=== PATIENT | female | born 1995 | race Caucasian/White ===

== ENCOUNTER 2019-04-11 18:51 | Observation (INO) ==
[2019-04-11 19:27] LABS: Basophils # 0.1 K/mm3 (0-0.2); Basophils % 0.5 % (0.1-2.0); Eosinophils # 0.1 K/mm3 (0.0-0.4); Eosinophils % 0.9 % (0.1-12.0); Hematocrit 41.2 % (37.0-47.0); Hemoglobin 12.9 g/dL (12.2-16.2); Lymphocytes # 2.9 K/mm3 (0.7-4.5); Lymphocytes % 30.9 % (10-50); Mean Corpuscular HGB Conc 31.4 g/dL (31.8-35.4); Mean Platelet Volume 8.1 fl (7.4-10.4); Monocytes # 0.8 K/mm3 (0.1-1.0); Monocytes % 8.6 % (1.7-9.3); Neutrophils # 5.6 K/mm3 (1.8-7.8); Neutrophils % 59.1 % (37.0-80.0); Platelet Count 249 K/mm3 (142-424); Red Blood Count 4.58 M/mm3 (4.20-5.40); Red Cell Distribution Width 13.1 % (11.5-17.5); White Blood Count 9.5 K/mm3 (4.8-10.8)
[2019-04-11 19:27] LABS: Microscopic, Urine URINE MICROSCOPIC (MICROSCOPIC)
[2019-04-11 19:39] LABS: Alanine Aminotransferase 22 U/L (12-78); Albumin Level 4.1 gm/dL (3.4-5.0); Albumin/Globulin Ratio 1.2 (1.1-1.8); Alkaline Phosphatase 67 U/L (46-116); Anion Gap 15.7 mEq/L (5-15); Aspartate Amino Transferase 17 U/L (15-37); Bilirubin,Total 0.2 mg/dL (0.2-1.0); Blood Urea Nitrogen 11 mg/dL (7-18); Carbon Dioxide 23 mmol/L (21.0-32.0); Chloride 105 mmol/L (98-107); Globulin 3.5 gm/dl (1.3-3.2); Glucose 92 mg/dL (74-106); Sodium 140 mmol/L (136-145); Total Protein,Serum 7.6 gm/dL (6.4-8.2)
[2019-04-11 19:43] LABS: Appearance,Urine SL CLOUDY (Clear); Bilirubin,Urine Negative (Negative); Blood, Urine 3+ (Negative); Color,Urine YELLOW (Yellow); Glucose,Urine (UA) Negative (Negative); Ketones,Urine Negative (Negative); Leukocyte Esterase,Urine Negative (Negative); PH,Urine 7.5 (5.0-8.5); Protein,Urine 1+ (Negative); Specific Gravity, Urine 1.015 (1.005-1.030); Urobilinogen,Urine 0.2 EU/dl (0.2)
[2019-04-11 19:44] LABS: RBC,Urine 50-100 #/hpf (0-3)
[2019-04-11 19:48] LABS: Amphetamine/Metha Screen,Urine Negative ng/mL (<1000); Barbiturates Screen,Urine Negative ng/mL (<200); Benzodiazepines Screen,Urine Negative ng/mL (<200); Cannabinoid Screen,Urine Negative ng/mL (<50); Cocaine Screen,Urine Negative ng/mL (<300); Methadone Screen,Urine Negative ng/mL (<300); Opiate Screen,Urine Negative ng/mL (<300); Phencyclidine Screen,Urine Negative ng/mL (<25)
--- NOTE | 2019-04-11 19:56 | Emergency Department Note ---
ED Disposition Clinical Impression: Orthostasis, Vaginal bleeding Disposition: Still a Patient Condition on Discharge: Fair Instructions: DI for Syncope in Adults (Fainting), DI for Syncope in Children (Fainting) Referrals: Provider,MD [place] [Primary Care Provider] - Agnes Mcleod MD [Staff Physician] - - Critical Care Critical Care Time: No Attestation: On , the high probability of a clinically significant, sudden or life threatening deterioration of the following system(s) required my full and direct attention, intervention and personal management. The time I documented below is in addition to time spent performing reported procedures but includes the following listed in this critical care notation. Medical Decision Making - Jomar Inquiry Pt receiving controlled substance: No Jomar was queried for this patient: No Vital Signs: 04/11/19 18:53 04/11/19 19:02 04/11/19 19:14 Temperature 98.9 F 98.9 F Temperature Source Oral Oral Pulse Rate [Orthostatic Lying Right Radial] 68 Pulse Rate [Orthostatic Sitting Right Radial] 66 Pulse Rate [Orthostatic Standing Right Brachial] 74 Pulse Rate [Right] 103 H 103 H Respiratory Rate 18 18 Blood Pressure [Orthostatic Lying Right Arm] 91/56 L Blood Pressure [Orthostatic Sitting Right Arm] 93/41 L Blood Pressure [Orthostatic Standing Right Arm] 72/50 L Blood Pressure [Right Arm] 150/99 H 150/99 H Blood Pressure Mean [Right Arm] 116 116 Blood Pressure Source [Right Arm] Automatic Cuff Automatic Cuff Blood Pressure Position [Right Arm] Supine Supine 02 Sat by Pulse Oximetry 99 99 Oxygen Delivery Method Room Air Room Air 04/11/19 19:40 Temperature Temperature Source Pulse Rate [Orthostatic Lying Right Radial] Pulse Rate [Orthostatic Sitting Right Radial] Pulse Rate [Orthostatic Standing Right Brachial] Pulse Rate [Right] 84 Respiratory Rate 18 Blood Pressure [Orthostatic Lying Right Arm] Blood Pressure [Orthostatic Sitting Right Arm] Blood Pressure [Orthostatic Standing Right Arm] Blood Pressure [Right Arm] 118/70 Blood Pressure Mean [Right Arm] 86 Blood Pressure Source [Right Arm] Automatic Cuff Blood Pressure Position [Right Arm] Supine 02 Sat by Pulse Oximetry 99 Oxygen Delivery Method Room Air - Lab Data Lab Results 04/11/19 19:03: WBC 9.5, RBC 4.58, Hgb 12.9, Hct 41.2, MCV 90.0, MCH 28.2, MCHC 31.4 L, RDW 13.1, Plt Count 249, MPV 8.1, Neut % (Auto) 59.1, Lymph % (Auto) 30.9, [place] % (Auto) 8.6, Eos % (Auto) 0.9, Baso % (Auto) 0.5, Neut # (Auto) 5.6, Lymph # (Auto) 2.9, [place] # (Auto) 0.8, Eos # (Auto) 0.1, Baso # (Auto) 0.1 04/11/19 19:03: Sodium 140, Potassium 3.7, Chloride 105, Carbon Dioxide 23, Anion Gap 15.7 H, BUN 11, Creatinine 0.81, Estimated Creat Clear 85, Estimated GFR 86, Est GFR ( Amer) 104, Glucose 92, Calcium 9.0, Total Bilirubin 0.2, AST 17, ALT 22, Alkaline Phosphatase 67, Troponin I < 0.02, Total Protein 7.6, Albumin 4.1, Globulin 3.5 H, Albumin/Globulin Ratio 1.2 04/11/19 19:10: POC Glucose 108 04/11/19 19:23: Urine Color Yellow, Urine Appearance Sl cloudy, Urine pH 7.5, Ur Specific [place] 1.015, Urine Protein 1+, Urine Glucose (UA) Negative, Urine Ketones Negative, Urine Blood 3+, Urine Nitrate Negative, Urine Bilirubin Negative, Urine Urobilinogen 0.2, Ur Leukocyte Esterase Negative, Urine RBC 50- 100, Ur Squamous Epith Cells 5-10, Ur Renal Epithelial Cell 3-5 04/11/19 19:23: Urine HCG, Qual Negative 04/11/19 19:23: Urine Opiates Screen Negative, Urine Methadone Screen Negative, Ur Barbituates Screen Negative, Ur Phencyclidine Scrn Negative, Ur Amphetamines Screen Negative, U Benzodiazepines Scrn Negative, Urine Cocaine Screen Negative, U Marijuana (THC) Screen Negative Result diagrams: 04/11/19 19:03 04/11/19 19:03 Orders (Tests/Meds): ED MEDICATIONS Generic Name Dose Route Start Last Admin Trade Name Freq PRN Reason Stop Dose Admin Sodium Chloride 1,000 mls @ 999 mls/hr 04/11/19 19:45 04/11/19 19:37 Sod Chlor 0.9% 1000ml Bag IV 04/11/19 20:45 999 mls/hr .Q1H1M LANCE Administration Sodium Chloride 1,000 mls @ 999 mls/hr 04/11/19 20:15 04/11/19 20:11 Sod Chlor 0.9% 1000ml Bag IV 04/11/19 21:15 999 mls/hr .Q1H1M LANCE Administration ORDERS Category Date Time Status Type and Screen Stat BBK 04/11/19 19:[address] cervical spine wo con Stat Cat Scan 04/11/19 19:[address] head/brain wo con Stat Cat Scan 04/11/19 19:13 Taken XR chest AP Stat Exams 04/11/19 19:13 Ordered XR pelvis 1-2V Stat Exams 04/11/19 19:13 Ordered Medical Decision Narrative: I spoke with Dr. Mcleod DRIVER SUPERVISOR on-call who agreed to admit the patient for IV fluid rehydration and repeat CBC in the morning. Dizzy HPI - General Chief Complaint: Syncope Stated Complaint: Passed out hit head Time Seen by Provider: 04/11/19 19:00 Mode of Arrival: Ambulatory Limitations: No Limitations Description of Symptoms (Recalled from ER Triage Doc. by RN): Pt states she fell walking to chair after going to the bathroom, c/o H/A - History of Present Illness HPI Narrative: 23 years old white female with no significant past medical history. The patient is 0 para 0 A0, her period is 11 days late and she has been nauseous during that period of time with no decreased p.o. intake and normal urinations.. Started yesterday with changing 11 pads. Prior to arrival to the ED she walked out of the bathroom felt dizzy and fell, denies any focal pain. MD complaint: dizziness, lightheadedness Onset (ago): minute(s) Time: 18:00 Timing: sudden onset Description: lightheadedness History of similar episodes: No History of trauma: No Severity: severe Relieving factors: remaining still Exacerbating factors: movement Associated symptoms: denies other symptoms - Related Data Home Medications Medication Instructions Recorded Confirmed No Known Home Medications 03/30/19 04/11/19 Allergies Allergy/AdvReac Type Severity Reaction Status Date / Time corn Allergy Verified 04/11/19 20:20 gluten Allergy Verified 04/11/19 20:20 nut - unspecified Allergy Verified 04/11/19 20:20 tomato Allergy Verified 04/11/19 20:20 [facility] History - Hepatitis A Screen Drug use history?: No High risk sexual behaviors?: No History of sexually transmitted infection?: No Currently employed?: No Childcare worker?: No Do you have indoor plumbing?: Yes Do you have electricity?: Yes Attestation statement:: This patient has been screened for Hepatitis A risk factors. I have reviewed the patient's past medical history: Yes Medical History: Denies:: Diabetes Mellitus Type 1, Diabetes Mellitus Type 2 Laterality Cases: Bilateral: Tonsillectomy Other Surgeries: Yes: Hernia Repair Amputation: No Fractures: No - Social History Smoking Status: Never smoker Alcohol Intake: never Occupational Status: unemployed Family Hx:: No significant family history ROS Obtained: Yes All systems reviewed & no additional complaints Physical Exam - General General appearance: alert, in no apparent distress - Head Head exam: atraumatic, normocephalic, normal inspection - Eye Eye exam: Present: normal appearance, PERRL, EOMI. Absent: scleral icterus, nystagmus - ENT ENT exam: Present: normal exam, normal oropharynx, mucous membranes moist, TM's normal bilaterally, normal external ear exam - Neck Neck exam: Present: normal inspection, full ROM, trachea midline. Absent: tenderness, meningismus, lymphadenopathy - Chest Chest inspection: Present: normal inspection, symmetric chest wall rise. Absent: tenderness - Respiratory Respiratory exam: Present: normal lung sounds bilaterally. Absent: respiratory distress, wheezes - Cardiovascular Cardiovascular exam: Present: regular rate, normal rhythm. Absent: JVD - Abdominal Exam Abdominal exam: Present: soft, normal bowel sounds. Absent: distention, tenderness, guarding, rebound, rigidity Comment: Vulva and vagina are within normal limits, no adnexal masses or tenderness, uterus within normal size cervix is firm and closed, dark blood on the gloves.. - External exam: Present: normal external exam - Extremities Exam Extremities exam: Present: normal inspection, full ROM, normal capillary refill. Absent: pedal edema, calf tenderness - Back Exam Back exam: Present: normal inspection. Absent: tenderness, CVA tenderness (R), CVA tenderness (L) - Neurological Exam Neurological exam: Present: alert, oriented X3, CN II-XII intact, motor sensory deficit, reflexes normal - Psychiatric Psychiatric exam: Present: normal affect, normal mood - Skin Skin exam: Present: warm, dry, intact, normal color - Lymphatic Lymphatic Findings: no adenopathy
[2019-04-12 07:02] LABS: Basophils % 0.2 % (0.1-2.0); Eosinophils # 0.1 K/mm3 (0.0-0.4); Eosinophils % 1.1 % (0.1-12.0); Hematocrit 34.6 % (37.0-47.0); Lymphocytes # 2.4 K/mm3 (0.7-4.5); Lymphocytes % 28.3 % (10-50); Mean Corpuscular HGB Conc 31.4 g/dL (31.8-35.4); Mean Corpuscular Volume 90.5 fl (81-99); Mean Platelet Volume 8.3 fl (7.4-10.4); Monocytes # 0.6 K/mm3 (0.1-1.0); Monocytes % 7.1 % (1.7-9.3); Neutrophils # 5.3 K/mm3 (1.8-7.8); Neutrophils % 63.3 % (37.0-80.0); Platelet Count 206 K/mm3 (142-424); Red Blood Count 3.82 M/mm3 (4.20-5.40); Red Cell Distribution Width 13.2 % (11.5-17.5); White Blood Count 8.4 K/mm3 (4.8-10.8)
[2019-04-12 07:13] LABS: Anion Gap 11.9 mEq/L (5-15); Calcium 8.3 mg/dL (8.5-10.1)
[2019-04-12 07:38] LABS: Hemoglobin 10.8 g/dL (12.2-16.2)
--- NOTE | 2019-04-12 10:07 | Pharmacy Consult Notes ---
[facility] Pharmacy VTE Monitoring - Patient Demographics Admission date: 04/12/19 Report Date: 04/12/19 Time: 10:07 Allergies/Adverse Reactions: Patient Allergies corn Allergy (Verified 04/11/19 20:20) gluten Allergy (Verified 04/11/19 20:20) nut - unspecified Allergy (Verified 04/11/19 20:20) tomato Allergy (Verified 04/11/19 20:20) Height: 1.68 m Weight: 52.645 kg Patient Problems: Current Active Problems (Updated 04/11/19 @ 20:01 by Jimi Richardson MD) Orthostasis (Acute) Vaginal bleeding (Acute) - VTE Risk Labs: VTE Related Lab Results Hgb 10.8 g/dL (12.2-16.2) L D 04/12/19 06:50 Hct 34.6 % (37.0-47.0) L 04/12/19 06:50 Plt Count 206 K/mm3 (142-424) 04/12/19 06:50 BUN 9 mg/dL (7-18) 04/12/19 06:50 Creatinine 0.57 mg/dL (0.55-1.02) D 04/12/19 06:50 Estimated Creat Clear 125 mL/min (50-200) 04/12/19 06:50 Was VTE Risk Assessment Performed: Yes VTE Risk Level: Very Low Risk - Prophylaxis Types of VTE Prophylaxis: TEDS Knee High (BOBBY HOSE ORDER PLACED)
--- NOTE | 2019-04-12 11:29 | History & Physical Report ---
*Admission Date: 04/12/19 *Chief complaint: heavy vaginal bleeding, syncope *History of present illness: 23 yo presented to the ED after syncopal episode. Menstrual period was late and when it began was excessively heavy. Patient reported using 10 pads during that day, and had syncopal episode upon rising. No previous similar episodes. HCG was negative. She was initially orthostatic upon assessment, but vital signs improved & stablized after administration of IV fluids. She is admitted for observation with repeat labs in the am. [facility] History I have reviewed the patient's past medical history: Yes Medical History: Denies:: Diabetes Mellitus Type 1, Diabetes Mellitus Type 2 *Have you ever received a pneumonia vaccine?: No *Have you received a flu vaccine this season?: No Laterality Cases: Bilateral: Tonsillectomy Other Surgeries: Yes: Hernia Repair Amputation: No Fractures: No - *Social History Educational Level: Completed High School Smoking Status: Never smoker Alcohol Intake: never *Occupational Status:: unemployed Household Members: spouse *Travel in the last 8 weeks: None - Psychiatric History Expresses thoughts of harming self/others: None Suicide Plan Description: No Plan Family Hx:: Thyroid Disorder Review of Systems - Review of Systems CONSTITUTIONAL: no fever; + lightheaded at presentation HEENT: no oral lesions PULMONARY: no shortness of breath or difficulty breathing CV: no racing heart, palpitations or chest pain ABD: no abdominal pain, N/V : + excessive bleeding SKIN: no new rash or skin lesions EXT: no edema NEURO: no mental status changes PSYCH: no current anxiety/depression Meds Home Medications Medication Instructions Recorded Confirmed Type Clindamycin Phosphate 0 gm TOPICAL DIRECTED 04/12/19 04/12/19 History Tretinoin 0 gm TOPICAL DIRECTED 04/12/19 04/12/19 History Allergies Allergy/AdvReac Type Severity Reaction Status Date / Time corn Allergy Verified 04/11/19 20:20 gluten Allergy Verified 04/11/19 20:20 nut - unspecified Allergy Verified 04/11/19 20:20 tomato Allergy Verified 04/11/19 20:20 Exam Vital signs and Labs for Last 24 Hours: Temp Pulse Resp BP Pulse Ox 98.2 F 86 15 120/72 98 04/12/19 08:00 04/12/19 08:00 04/12/19 08:00 04/12/19 08:00 04/12/19 08:00 Laboratory Results - last 24 hr 04/11/19 19:03: WBC 9.5, RBC 4.58, Hgb 12.9, Hct 41.2, MCV 90.0, MCH 28.2, MCHC 31.4 L, RDW 13.1, Plt Count 249, MPV 8.1, Neut % (Auto) 59.1, Lymph % (Auto) 30.9, [place] % (Auto) 8.6, Eos % (Auto) 0.9, Baso % (Auto) 0.5, Neut # (Auto) 5.6, Lymph # (Auto) 2.9, [place] # (Auto) 0.8, Eos # (Auto) 0.1, Baso # (Auto) 0.1 04/11/19 19:03: Sodium 140, Potassium 3.7, Chloride 105, Carbon Dioxide 23, Anion Gap 15.7 H, BUN 11, Creatinine 0.81, Estimated Creat Clear 85, Estimated GFR 86, Est GFR ( Amer) 104, Glucose 92, Calcium 9.0, Total Bilirubin 0.2, AST 17, ALT 22, Alkaline Phosphatase 67, Troponin I < 0.02, Total Protein 7.6, Albumin 4.1, Globulin 3.5 H, Albumin/Globulin Ratio 1.2 04/11/19 19:10: POC Glucose 108 04/11/19 19:23: Urine Color Yellow, Urine Appearance Sl cloudy, Urine pH 7.5, Ur Specific [place] 1.015, Urine Protein 1+, Urine Glucose (UA) Negative, Urine Ketones Negative, Urine Blood 3+, Urine Nitrate Negative, Urine Bilirubin Negative, Urine Urobilinogen 0.2, Ur Leukocyte Esterase Negative, Urine RBC 50- 100, Ur Squamous Epith Cells 5-10, Ur Renal Epithelial Cell 3-5 04/11/19 19:23: Urine HCG, Qual Negative 04/11/19 19:23: Urine Opiates Screen Negative, Urine Methadone Screen Negative, Ur Barbituates Screen Negative, Ur Phencyclidine Scrn Negative, Ur Amphetamines Screen Negative, U Benzodiazepines Scrn Negative, Urine Cocaine Screen Negative, U Marijuana (THC) Screen Negative 04/11/19 21:05: Blood Type A Positive, Antibody Screen Negative 04/12/19 06:50: WBC 8.4, RBC 3.82 L, Hgb 10.8 L D, Hct 34.6 L, MCV 90.5, MCH 28.4, MCHC 31.4 L, RDW 13.2, Plt Count 206, MPV 8.3, Neut % (Auto) 63.3, Lymph % (Auto) 28.3, [place] % (Auto) 7.1, Eos % (Auto) 1.1, Baso % (Auto) 0.2, Neut # (Auto) 5.3, Lymph # (Auto) 2.4, [place] # (Auto) 0.6, Eos # (Auto) 0.1, Baso # (Auto) 0.0 04/12/19 06:50: Sodium 139, Potassium 3.9, Chloride 107, Carbon Dioxide 24, Anion Gap 11.9, BUN 9, Creatinine 0.57 D, Estimated Creat Clear 125, Estimated GFR 129, Est GFR ( Amer) 156 D, Glucose 87, Calcium 8.3 L I & O for Last 24 hours: Intake & Output 04/09/19 04/10/19 04/11/19 04/12/19 11:59 11:59 11:59 11:59 Intake Total 2991 / 2991 Output Total 1850 / 1850 Balance 1141 / 1141 Weight 116 lb 1 oz Narrative: CONSTITUTIONAL: no acute distress HEENT: mucous membranes moist PULMONARY: breathing unlabored without audible wheezes CV: + tachycardia; normal LE peripheral pulses ABD: soft, NT/ND, no guarding : per ED note SKIN: no visible rash or lesions EXT: no edema LEs NEURO: alert/oriented, no altered mental status PSYCH: appropriate mood and demeanor without visible anxiety/depression Assessment and Plan (1) Orthostasis Current visit: Yes Status: Acute Category: Medical Code(s): I95.1 - Orthostatic hypotension (2) Vaginal bleeding Current visit: Yes Status: Acute Category: Medical Code(s): N93.9 - Abnormal uterine and vaginal bleeding, unspecified - Assessment and plan all Dx Assessment and Plan for all problems:: Admission for observation overnight Continue IV hydration Repeat CBC in am No need for acute/hormonal treatment of DUB at this time
--- NOTE | 2019-04-12 11:49 | Discharge Summary ---
General - General Admission date:: 04/11/19 Discharge date: 04/12/19 HPI HPI: 23 yo G0 presented to the ED after syncopal episode. Menstrual period was late and when it began was excessively heavy. Patient reported using 10 pads during that day, and had syncopal episode upon rising. No previous similar episodes, although she reports intermittent heavy menstrual bleeding. HCG was negative. She was initially orthostatic upon assessment, but vital signs improved & stablized after administration of IV fluids. She is admitted for observation with repeat labs in the am. Hgb at admissin was 12.9 and dropped to 10.8 on HD #2 Orthostatic symptoms improved and no additional syncopal episodes The option of prophylactic medical management (OCPs, levonorgestrel IUD) was discussed with the patient, and she was not interested in medical management at this time. She reported that she is not actively trying to conceive, but did not want to prevent at this time. She has an appointment with a new particle board supervisor scheduled for tomorrow and will discuss options for management of HMB further with this provider at that time. She was advised to start po FeSO4 supplementation, and that she may also benefit from NSAID use during menstrual bleeding to decrease total blood loss. Hospital Course Hospital Course: per HPI Objective Vital signs: Temp Pulse Resp BP Pulse Ox 98.2 F 86 15 120/72 98 04/12/19 08:00 04/12/19 08:00 04/12/19 08:00 04/12/19 08:00 04/12/19 08:00 Narrative: CONSTITUTIONAL: no acute distress HEENT: mucous membranes moist PULMONARY: breathing unlabored without audible wheezes CV: no tachycardia or visible JVD; normal LE peripheral pulses ABD: soft, NT/ND, no guarding : deferred SKIN: no visible rash or lesions EXT: no edema LEs NEURO: alert/oriented, no altered mental status PSYCH: appropriate mood and demeanor without anxiety/depression Results Labs on day of discharge: Labs from last 24 hours 04/12/19 04/12/19 04/11/19 06:50 06:50 21:05 WBC 8.4 RBC 3.82 L Hgb 10.8 L D Hct 34.6 L MCV 90.5 MCH 28.4 MCHC 31.4 L RDW 13.2 Plt Count 206 MPV 8.3 Neut % (Auto) 63.3 Lymph % (Auto) 28.3 [place] % (Auto) 7.1 Eos % (Auto) 1.1 Baso % (Auto) 0.2 Neut # (Auto) 5.3 Lymph # (Auto) 2.4 [place] # (Auto) 0.6 Eos # (Auto) 0.1 Baso # (Auto) 0.0 Sodium 139 Potassium 3.9 Chloride 107 Carbon Dioxide 24 Anion Gap 11.9 BUN 9 Creatinine 0.57 D Estimated Creat Clear 125 Estimated GFR 129 Est GFR ( Amer) 156 D Glucose 87 POC Glucose Calcium 8.3 L Total Bilirubin AST ALT Alkaline Phosphatase Troponin I Total Protein Albumin Globulin Albumin/Globulin Ratio Urine Color Urine Appearance Urine pH Ur Specific [place] Urine Protein Urine Glucose (UA) Urine Ketones Urine Blood Urine Nitrate Urine Bilirubin Urine Urobilinogen Ur Leukocyte Esterase Urine RBC Ur Squamous Epith Cells Ur Renal Epithelial Cell Urine HCG, Qual Urine Opiates Screen Urine Methadone Screen Ur Barbituates Screen Ur Phencyclidine Scrn Ur Amphetamines Screen U Benzodiazepines Scrn Urine Cocaine Screen U Marijuana (THC) Screen Blood Type A Positive Antibody Screen Negative 04/11/19 04/11/19 04/11/19 19:23 19:23 19:23 WBC RBC Hgb Hct MCV MCH MCHC RDW Plt Count MPV Neut % (Auto) Lymph % (Auto) [place] % (Auto) Eos % (Auto) Baso % (Auto) Neut # (Auto) Lymph # (Auto) [place] # (Auto) Eos # (Auto) Baso # (Auto) Sodium Potassium Chloride Carbon Dioxide Anion Gap BUN Creatinine Estimated Creat Clear Estimated GFR Est GFR ( Amer) Glucose POC Glucose Calcium Total Bilirubin AST ALT Alkaline Phosphatase Troponin I Total Protein Albumin Globulin Albumin/Globulin Ratio Urine Color Yellow Urine Appearance Sl cloudy Urine pH 7.5 Ur Specific [place] 1.015 Urine Protein 1+ Urine Glucose (UA) Negative Urine Ketones Negative Urine Blood 3+ Urine Nitrate Negative Urine Bilirubin Negative Urine Urobilinogen 0.2 Ur Leukocyte Esterase Negative Urine RBC 50-100 Ur Squamous Epith Cells 5-10 Ur Renal Epithelial Cell 3-5 Urine HCG, Qual Negative Urine Opiates Screen Negative Urine Methadone Screen Negative Ur Barbituates Screen Negative Ur Phencyclidine Scrn Negative Ur Amphetamines Screen Negative U Benzodiazepines Scrn Negative Urine Cocaine Screen Negative U Marijuana (THC) Screen Negative Blood Type Antibody Screen 04/11/19 04/11/19 04/11/19 19:10 19:03 19:03 WBC 9.5 RBC 4.58 Hgb 12.9 Hct 41.2 MCV 90.0 MCH 28.2 MCHC 31.4 L RDW 13.1 Plt Count 249 MPV 8.1 Neut % (Auto) 59.1 Lymph % (Auto) 30.9 [place] % (Auto) 8.6 Eos % (Auto) 0.9 Baso % (Auto) 0.5 Neut # (Auto) 5.6 Lymph # (Auto) 2.9 [place] # (Auto) 0.8 Eos # (Auto) 0.1 Baso # (Auto) 0.1 Sodium 140 Potassium 3.7 Chloride 105 Carbon Dioxide 23 Anion Gap 15.7 H BUN 11 Creatinine 0.81 Estimated Creat Clear 85 Estimated GFR 86 Est GFR ( Amer) 104 Glucose 92 POC Glucose 108 Calcium 9.0 Total Bilirubin 0.2 AST 17 ALT 22 Alkaline Phosphatase 67 Troponin I < 0.02 Total Protein 7.6 Albumin 4.1 Globulin 3.5 H Albumin/Globulin Ratio 1.2 Urine Color Urine Appearance Urine pH Ur Specific [place] Urine Protein Urine Glucose (UA) Urine Ketones Urine Blood Urine Nitrate Urine Bilirubin Urine Urobilinogen Ur Leukocyte Esterase Urine RBC Ur Squamous Epith Cells Ur Renal Epithelial Cell Urine HCG, Qual Urine Opiates Screen Urine Methadone Screen Ur Barbituates Screen Ur Phencyclidine Scrn Ur Amphetamines Screen U Benzodiazepines Scrn Urine Cocaine Screen U Marijuana (THC) Screen Blood Type Antibody Screen DS: Diagnosis - Discharge Diagnosis (1) Orthostasis Status: Acute (2) Vaginal bleeding Status: Acute Discharge Plan - Patient Discharge Instructions ACTIVITY: Ambulate as tolerated DIET: regular diet Patient Instructions: DI for Syncope in Adults (Fainting), DI for Vaginal Bleeding - Follow up Plan Disposition: Home, Self-[facility]itentiary Medications: Home Medications Medication Instructions Recorded Confirmed Type Clindamycin Phosphate 0 gm TOPICAL DIRECTED 04/12/19 04/12/19 History Tretinoin 0 gm TOPICAL DIRECTED 04/12/19 04/12/19 History Prescriptions/Medication Reconciliation: Continued Clindamycin Phosphate 0 gm TOPICAL DIRECTED Tretinoin 0 gm TOPICAL DIRECTED - Additional Information Additional Information: Take FeSO4 (iron) table daily (over the counter)
== END 2019-04-12 13:22 | disposition home or self-care (01) ==
LOC: 2ND 18:51 → ER 18:51 → 2ND 21:55
PROVIDERS: ADMIT Obstetrics & Gynecology; ATTEND Obstetrics & Gynecology
DX: Z79.899 Other long term (current) drug therapy; I95.1 Orthostatic hypotension; Z91.018 Allergy to other foods; N93.8 Other specified abnormal uterine and vaginal bleeding
CPT/HCPCS: 36415; 70450; 71010; 71045; 72125; 72170; 80048; 80053; 80305; 81001; 81025; 82962; 84484; 85025; 86850; 93005; 96365; 99285; G0378

== ENCOUNTER → 2019-08-13 09:14 | Outpatient (CLI) | payer BC, SELFPAY ==
--- NOTE | 2019-08-13 09:17 | US_ITS ---
PROCEDURE: US BREAST RT COMPLETE CLINICAL INDICATION: PALPABLE NODULE Palpable nodule 10 o'clock region near nipple COMPARISON: No exams were available for comparison FINDINGS: The at the 9 o'clock region near the nipple there is a slightly hypoechoic nodule with a peripheral rim of decreased echogenicity which measures 9 x 7 mm. No posterior acoustical shadowing evident. There is some increased blood flow around this nodule. This is directly in the subcutaneous region. This does not represent a simple cyst. There is some lobularity along the inferior margin of the nodule.. IMPRESSION: Solid-appearing 9 x 7 mm subcutaneous nodule in the right breast corresponding the palpable abnormality at 9-10 o'clock. This could represent a fibroadenoma or an intramammary lymph node. There is some increased vascularity around the nodule. This is mildly suspicious but less so in this patient's age group however, would recommend ultrasound-guided fine needle aspiration for further evaluation. Dictated by: Ciro Tse MD 08/21/2019 10:00 Electronically signed by Ciro Tse MD in [place] 08/21/2019 10:00
== END ==
PROVIDERS: Visit Provider Obstetrics & Gynecology Gynecology
DX: N63.12 Unspecified lump in the right breast, upper inner quadrant
CPT/HCPCS: 76641

== ENCOUNTER → 2019-09-09 09:34 | Outpatient (CLI) | payer BC, SELFPAY ==
--- NOTE | 2019-09-09 09:36 | US_ITS ---
PROCEDURE: US FNA BREAST CLINICAL INDICATION: BREAST NODULE COMPARISON: US BREAST RT COMPLETE from 08/13/2019 TECHNIQUE: Solid nodule in the retroareolar region was localized with sonographic guidance. Following obtaining informed consent, using aseptic technique and local anesthesia with buffered lidocaine, fine-needle aspiration was performed of the nodule of interest using sonographic guidance. Two passes were made into the nodule with a 21 gauge needle. Specimen was given to cytology. Patient started to feel faint after the 2nd pass therefore, the procedure was discontinued as there was felt to be adequate tissue. Patient begin filled better with a cold wash rag and modified Trendelenburg. The patient tolerated the procedure well without evidence of immediate complications and left radiology department in stable condition FINDINGS: CYTOLOGY: Negative for malignancy. Compatible with fibroadenoma IMPRESSION: Uneventful ultrasound-guided fine needle aspiration of right breast nodule compatible with fibroadenoma. The patient tolerated the procedure well without evidence of immediate complications and left the ultrasound suite in stable condition. Dictated by: Ciro Tse MD 09/12/2019 11:39 Electronically signed by Ciro Tse MD in [place] 09/12/2019 11:39
== END ==
PROVIDERS: Visit Provider Obstetrics & Gynecology Gynecology
DX: N63.41 Unspecified lump in right breast, subareolar (principal)
CPT/HCPCS: 10005; 76942

== ENCOUNTER 2021-03-30 15:52 | Emergency (ER) | payer BC, SELFPAY ==
[2021-03-30 15:55] VITALS: BP 137/85; PULSE 88; RESP 19; TEMP 36.8; O2SAT 99; BMI 18.7
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
[2021-03-30 16:26] LABS: UTC Pregnancy Test, Urine Negative (Negative)
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
[2021-03-30 17:30] VITALS: BP 137/85; PULSE 88; RESP 19; TEMP 36.8; O2SAT 99
== END 2021-03-30 17:35 | disposition home or self-care (01) ==
PROVIDERS: Emergency Provider Nurse Practitioner; PCP Family Medicine
DX: S16.1XXA Strain of muscle, fascia and tendon at neck level, initial encounter (principal); V47.0XXA Car driver injured in collision with fixed or stationary object in nontraffic accident, initial encounter; Y92.488 Other paved roadways as the place of occurrence of the external cause
CPT/HCPCS: 72040; 81025; 99202; G0463

== ENCOUNTER → 2021-10-31 16:30 | Outpatient (CLI) | payer BC, SELFPAY | PROVIDERS: Visit Provider Urology | DX: N39.0 Urinary tract infection, site not specified (principal); B96.20 Unspecified Escherichia coli [E. coli] as the cause of diseases classified elsewhere | CPT/HCPCS: 87086; 87088; 87186 ==

== ENCOUNTER → 2021-11-24 09:17 | Outpatient (CLI) | payer BC, SELFPAY ==
--- NOTE | 2021-11-24 09:18 | US_ITS ---
FINAL REPORT TECHNIQUE: Ultrasound images of the kidneys and bladder were obtained. CLINICAL HISTORY: .reoccuring utis FINDINGS: The right kidney measures 10.2 cm in length. It is normal in echogenicity. There is no hydronephrosis. The left kidney measures 9.6 cm in length. It is normal in echogenicity. There is no hydronephrosis. The spleen is unremarkable. IMPRESSION: No hydronephrosis. Reviewed, Interpreted and Dictated by Monico Barba MD Transcribed by Maryuri Garcia Authenticated by Monico Barba MD on 11/24/2021 12:35:42 PM [facility]
== END ==
PROVIDERS: PCP Family Medicine; Visit Provider Urology
DX: N39.0 Urinary tract infection, site not specified (principal)
CPT/HCPCS: 76770